=== PATIENT | male | born 1980 | race Two or more races ===

== ENCOUNTER 2023-09-05 20:40 | Inpatient (IN) | payer OTHER ==
[~2023-09-05] VITALS: Ht 170.2 cm; Wt 111.9 kg
[2023-09-05] MEDS ORDERED: HYDROcodone-ACET 10/325MG TAB PO ONE (21:00)
[2023-09-05] MEDS ORDERED: KETOROLAC TROMETH 60MG/2ML VIAL IM ONE (21:00)
[2023-09-05] MEDS: KETOROLAC TROMETH 30 MG/ML 1ML VIAL IV ONE (23:04)
[2023-09-06] VITALS (8 sets, daily range): BP systolic 144–168; BP diastolic 79–101; PULSE 87–99; RESP 12–19; TEMP 97.8–98.4; O2SAT 96–100
[2023-09-06 00:04] LABS: Urine Bacteria NONE SEEN /hpf (None Seen); Urine Blood 3+ /uL (Negative); Urine Clarity HAZY (Clear); Urine Color Yellow (Yellow); Urine Hyaline Cast FEW /lpf (0 - 2); Urine Mucus FEW (None Seen); Urine Protein, UAD 1+ (Negative); Urine Specific Gravity 1.028 (1.001-1.035); Urine Urobilinogen Normal (Negative); Urine WBC 10 /hpf (0 - 3)
[2023-09-06 00:42] LABS: Basophils # (auto) 0.1 10 ^3/uL (0-0.2); Basophils % (auto) 0.5 % (0.0-2.0); Eosinophils # (auto) 0 10 ^3/uL (0-0.8); Eosinophils % (auto) 0.2 % (0.0-7.0); Hematocrit 46.5 % (41.0-53.0); Hemoglobin 15.8 g/dL (13.5-17.5); Lymphocytes # (auto) 2.6 10 ^3/uL (0.4-5.4); Lymphocytes % (auto) 19.4 % (10.0-50.0); Mean Corpuscular Volume 85.4 fL (80.0-100.0); Monocytes # (auto) 1.4 10 ^3/uL (0-1.3); Monocytes % (auto) 10.1 % (0.0-12.0); Neutrophils # (auto) 9.5 10 ^3/uL (1.6-8.6); Neutrophils % (auto) 69.8 % (37.0-80.0); Nucleated Red Blood Cells % 0.1 %; Red Blood Cells 5.45 10^6/uL (4.5-5.90); Red Cell Distribution Width 15.3 % (11.8-14.3); White Blood Cell 13.6 10^3/uL (4.4-10.8)
[2023-09-06 00:56] LABS: INR 1.26 (0.9-1.15); Partial Thromboplastin Time 29.6 SEC (24.5-34.5)
[2023-09-06 00:58] LABS: Alanine Aminotransferase 40 U/L (7-40); Albumin 4.8 g/dL (3.2-4.8); Alkaline Phosphatase 63 U/L (46-116); Anion Gap 9 (5-15); Aspartate Aminotransferase 26 U/L (13-40); BUN/Creatinine Ratio 9.4 (10.0-20.0); Bilirubin, Total 0.8 mg/dL (0.2-1.0); Blood Urea Nitrogen 13 mg/dL (9-23); Calcium 9.3 mg/dL (8.7-10.4); Carbon Dioxide 24 mmol/L (20-30); Chloride 101 mmol/L (98-107); Glucose 116 mg/dL (74-106); Potassium 3.9 mmol/L (3.5-5.1); Sodium 134 mmol/L (136-145); Total Protein 8.5 g/dL (5.7-8.2)
[2023-09-06] MEDS: levoFLOXacin 500MG 100 ML IV ONE (04:51)
[2023-09-06] MEDS: SODIUM CHLORIDE 0.9% 1,000 ML IV ONE (04:53)
[2023-09-06] MEDS: fentaNYL CITRATE 100 MCG/2 ML VL IV ONE (06:12)
[2023-09-06] MEDS ORDERED: NITROGLYCERIN 0.4 MG SL TAB SL PRN (08:15)
[2023-09-06] MEDS: SOD CHL 0.45% 1,000 ML IV SCH (08:48)
[2023-09-06] MEDS: MORPHINE SULFATE INJ 2 MG/ml SYRG IV PRN ×2 (11:16→16:47)
[2023-09-06] MEDS: metFORMIN HYDROCHLORIDE 500 MG TAB PO SCH (16:46)
[2023-09-06] MEDS: SOD CHL 0.45% WITH 20MEQ KCL 1,000 ML IV SCH (16:47)
[2023-09-06] MEDS: ATORVASTATIN 20 MG TAB PO SCH (21:50)
[2023-09-06] MEDS: OXcarbazepine 300 MG TAB PO SCH (21:55)
[2023-09-06] MEDS: PIPERACILLIN-TAZOB 3.375GM 100 ML IV SCH (21:56)
[2023-09-07] VITALS (7 sets, daily range): BP systolic 143–165; BP diastolic 81–97; PULSE 68–104; RESP 12–20; TEMP 98.1–98.6; O2SAT 95–99
[2023-09-07 06:49] LABS: Basophils # (auto) 0 10 ^3/uL (0-0.2); Basophils % (auto) 0.4 % (0.0-2.0); Eosinophils # (auto) 0 10 ^3/uL (0-0.8); Eosinophils % (auto) 0.2 % (0.0-7.0); Hematocrit 43.2 % (41.0-53.0); Hemoglobin 14.2 g/dL (13.5-17.5); Lymphocytes # (auto) 2.3 10 ^3/uL (0.4-5.4); Lymphocytes % (auto) 19.1 % (10.0-50.0); Mean Corpuscular Hemoglobin 28.1 pg (28.0-32.0); Mean Corpuscular Hgb Conc. 32.8 g/dL (32.0-36.0); Mean Corpuscular Volume 85.7 fL (80.0-100.0); Monocytes # (auto) 1.2 10 ^3/uL (0-1.3); Monocytes % (auto) 10.2 % (0.0-12.0); Neutrophils # (auto) 8.5 10 ^3/uL (1.6-8.6); Neutrophils % (auto) 70.1 % (37.0-80.0); Nucleated Red Blood Cells % 0.1 %; Red Blood Cells 5.04 10^6/uL (4.5-5.90); Red Cell Distribution Width 15.5 % (11.8-14.3); White Blood Cell 12.1 10^3/uL (4.4-10.8)
[2023-09-07] MEDS: VERAPAMIL HCL 120 mg ER tab PO SCH (09:38)
[2023-09-08] VITALS (7 sets, daily range): BP systolic 124–148; BP diastolic 69–94; PULSE 86–97; RESP 14–18; TEMP 97.6–98.4; O2SAT 96–98
[2023-09-09 05:15] VITALS: BP 144/84; PULSE 84; RESP 18; TEMP 97.6; O2SAT 98
[2023-09-09] MEDS: ENOXAPARIN SOD 40 MG/0.4 ML SYRINGE SC SCH (08:41)
[2023-09-09 09:00] VITALS: BP 148/87; PULSE 78; RESP 14; TEMP 97.9; O2SAT 98
[2023-09-09] MEDS ORDERED: CIPR500T4 PO (12:53)
[2023-09-09 13:00] VITALS: BP 149/88; PULSE 80; RESP 17; TEMP 97.8; O2SAT 98
[2023-09-09 17:00] VITALS: BP 161/84; PULSE 87; RESP 15; TEMP 97.9; O2SAT 96
== END 2023-09-09 16:45 | DRG 690 ==
LOC: EEVIPCON 20:40 → ER 20:40 → EDBD 20:40 → OVERFLOW 09-06 08:10 → CENTRAL 09-06 15:35
PROVIDERS: ADMIT Internal Medicine; ATTEND Internal Medicine
DX: N13.6 Pyonephrosis (principal); G61.0 Guillain-Barre syndrome; F32.A Depression, unspecified; E78.5 Hyperlipidemia, unspecified; I10 Essential (primary) hypertension; J45.909 Unspecified asthma, uncomplicated; E11.9 Type 2 diabetes mellitus without complications; F17.210 Nicotine dependence, cigarettes, uncomplicated; Z87.442 Personal history of urinary calculi
CPT/HCPCS: 36415; 71045; 74018; 74176; 80053; 81001; 84484; 85025; 85610; 85730; 87040; 96365; 96375; G0378; J1885; J1956; J2543